=== PATIENT | female | born 1965 | race Caucasian/White ===

== ENCOUNTER → 2025-06-06 | Day surgery (SDC) | payer MEDICARE ==
[2025-05-31 13:16] LABS: BASOPHILS % 0.5 % (0.0-1.0); EOSINOPHILS % 3.1 % (0.0-6.0); LYMPHOCYTES % 14.1 % (18.0-39.1); MONOCYTES % 6.0 % (4.4-11.3); NEUTROPHILS % 76.0 % (38.7-80.0); RED CELL DISTRIBUTION WIDTH 13.5 % (11.7-14.4)
[2025-05-31 13:32] LABS: INR 0.8
[2025-05-31 13:37] LABS: EST GLOMERULAR FILTRATION RATE 91.0 ML/MIN (>=60)
[~2025-06-06] MED LIST: ASPIRIN81 MG PO; BUPIVACAINE LIPOSOME/PF 266 MG/20 ML IJ ONE; EFFIENT10 MG PO; EPHEDRINE SULFATE INJ 50 MG/ML VIAL ONE; FENTANYL CITRATE/PF 100MCG/2 ML INJ ONE; GLYCOPYRROLATE INJ 0.2 MG/ML VIAL ONE; HYDROCODON-ACE1 EAC9 PO; LIDOCAINE HCL 2% LOCAL INJ 5 ML SDV VIAL INJ ONE; LIPITOR20 MG PO; LYRICA25 MG PO; MELOXICAM7.5 MG PO; METOPROLOL SUCC25 MG PO; MIDAZOLAM HCL 2 MG/2 ML VIAL ONE; NITROGLYCERIN0.4 MG SL; ONDANSETRON HCL INJ 2MG/ML 2ML 2 MG/ML VIAL ONE; PROPOFOL IV EMULSION 10 MG/ML 20 ML VIAL ONE; ROCURONIUM BROMIDE 1 ML IV ONE; ROFLUMILAST500 MCG PO; SEVOFLURANE INHAL SOLN 250 ML PEN BTL ONE; SUGAMMADEX SODIUM 200 MG/2 ML VIAL IV ONE; TIZANIDINE HCL4 M1 PO; ZETIA10 MG PO; ZYRTEC10 MG PO
[2025-06-06] MEDS: LACTATED RINGER'S 1,000 ML ONE (09:03)
[2025-06-06] MEDS: CEFAZOLIN SODIUM 2 GM ONE (09:03)
[2025-06-06] MEDS: KETOROLAC TROMETHAMINE 30 MG/ML VIAL ONE (11:30)
[2025-06-06 12:00] VITALS: BP 132/91; PULSE 77; RESP 18; O2SAT 97
== END | disposition home or self-care (01) ==
LOC: OR 07:05
PROVIDERS: ATTEND Orthopaedic Surgery
DX: S46.012A Strain of muscle(s) and tendon(s) of the rotator cuff of left shoulder, initial encounter (principal); S43.422A Sprain of left rotator cuff capsule, initial encounter; M75.42 Impingement syndrome of left shoulder; M75.52 Bursitis of left shoulder; M75.02 Adhesive capsulitis of left shoulder; S46.212A Strain of muscle, fascia and tendon of other parts of biceps, left arm, initial encounter; S43.432A Superior glenoid labrum lesion of left shoulder, initial encounter; M19.012 Primary osteoarthritis, left shoulder; M24.012 Loose body in left shoulder; M75.22 Bicipital tendinitis, left shoulder; S46.011A Strain of muscle(s) and tendon(s) of the rotator cuff of right shoulder, initial encounter; M75.41 Impingement syndrome of right shoulder; S43.421A Sprain of right rotator cuff capsule, initial encounter; M19.011 Primary osteoarthritis, right shoulder; G89.29 Other chronic pain; G47.33 Obstructive sleep apnea (adult) (pediatric); D64.9 Anemia, unspecified; E66.9 Obesity, unspecified; I25.10 Atherosclerotic heart disease of native coronary artery without angina pectoris; I10 Essential (primary) hypertension; E78.5 Hyperlipidemia, unspecified; F17.290 Nicotine dependence, other tobacco product, uncomplicated; X58.XXXA Exposure to other specified factors, initial encounter; Z01.810 Encounter for preprocedural cardiovascular examination; Z01.812 Encounter for preprocedural laboratory examination; Z01.818 Encounter for other preprocedural examination; Z79.82 Long term (current) use of aspirin; Z79.1 Long term (current) use of non-steroidal anti-inflammatories (NSAID); Z79.899 Other long term (current) drug therapy; Z95.5 Presence of coronary angioplasty implant and graft
CPT/HCPCS: 29824; 29826; 29827; 36415 ×2; 71046; 80048; 82948; 85025; 85610; 85730; 93005; C1713; J0666; J1885; J2003; J2250; J2405; J2704; J3010; J7121